=== PATIENT | female | born 2000 | race Hispanic/Latino ===

== ENCOUNTER 2024-03-28 11:24 | Emergency (ER) | payer BC | END 2024-03-28 13:06 | disposition home or self-care (01) | LOC: ERS 11:24 | DX: S86.912A Strain of unspecified muscle(s) and tendon(s) at lower leg level, left leg, initial encounter (principal); X50.1XXA Overexertion from prolonged static or awkward postures, initial encounter ==

== ENCOUNTER 2024-04-02 10:57 | Outpatient (CLI) | payer BC | END 2024-04-02 10:58 | disposition home or self-care (01) | LOC: SCSMRI 10:57 | PROVIDERS: ATTEND Orthopaedic Surgery | DX: M23.92 Unspecified internal derangement of left knee (principal); S83.512A Sprain of anterior cruciate ligament of left knee, initial encounter; S83.212A Bucket-handle tear of medial meniscus, current injury, left knee, initial encounter; M25.462 Effusion, left knee; R93.7 Abnormal findings on diagnostic imaging of other parts of musculoskeletal system ==